=== PATIENT | female | born 1955 | race Caucasian/White ===

== ENCOUNTER 2018-06-13 04:09 | Emergency (ER) | payer OTHER ==
[~2018-06-13] VITALS: Ht 160 cm; Wt 65.8 kg
[~2018-06-13 04:09] MED LIST: ACID REDUCER20 M1 PO; ASPIR 8181 MG PO; FLEXERIL PO; FLONASE 0.05%50 MCG NASAL; IBUPROFEN 800800 M1 PO; NAPROSYN500 MG PO; NITROGLYCERIN0.4 MG SUBLING; TRAMADOL 50 MG50 MG PO; WELLBUTRIN SR100 MG PO; ZOLOFT50 MG PO
[2018-06-13 04:56] LABS: ABSOLUTE NEUTROPHILS 2.2 thou/uL (1.4-8.2); BASOPHILS 1.7 % (0.0-2.0); EOSINOPHILS 2.9 % (0.0-3.0); HEMATOCRIT 43.3 % (37.0-47.0); HEMOGLOBIN 15.4 gm/dL (12.0-15.0); LYMPHOCYTES 30.6 % (24.0-44.0); MCH 30.7 pg (26.0-34.0); MCHC 35.4 g/dL (28.0-37.0); MCV 86.5 fL (80.0-100.0); MONOCYTES 10.5 % (1.0-8.0); PLATELET COUNT 85 thou/uL (150-400); POLYS 54.3 % (36.0-66.0); RBC 5.01 mil/uL (4.20-5.00); RDW 14.1 % (10.5-14.5); WBC 4.1 thou/uL (4.0-11.0)
[2018-06-13 05:03] LABS: CALCIUM 8.9 mg/dL (8.5-10.1); CREATININE 0.9 mg/dL (0.6-1.0); MAGNESIUM 1.9 mg/dL (1.8-2.4); POTASSIUM 3.6 mmol/L (3.5-5.1)
[2018-06-13] MEDS ORDERED: NORFLEX100 MG PO (06:23)
[2018-06-13] MEDS ORDERED: TRAMADOL 50 MG50 MG PO (06:23)
[2018-06-13] MEDS ORDERED: IBUPROFEN 600600 M1 PO (06:23)
[2018-06-13 06:35] VITALS: BP 157/86
--- NOTE | 2018-06-13 08:42 | EKG ---
[place] [address] [address] [facility] [place] [address] ELECTROCARDIOGRAM REPORT Name: COLLEEN CARRILLO Room #: DEP NINA Bueno#: [id number] ������������������ Admission: 06/13/18 ������������������ Attend Phys: Discharge: 06/13/18 ������������������ Date of : 51 Report #: [id number] ����������������������������������������������������������������� [id number] THIS REPORT FOR: //name// [facility] ED Test Date: 2018-06-13 Test Time: 04:58:58 Pat Name: COLLEEN CARRILLO Department: Room: Gender: F Clinical Outcomes Manager: DG : 1955 Requested By: William Richards Order Number: [id number] MD: Rogelio Garza Measurements Intervals [place] Rate: 71 P: 68 MA: 135 QRS: 31 QRSD: 90 T: 53 QT: 410 QTc: 446 Interpretive Statements Sinus rhythm Normal tracing No previous ECG available for comparison Electronically Signed On 06-13-2018 8:41:53 CDT by Rogelio Garza [email or web address] ��������������������������������������������� <ELECTRONICALLY SIGNED> ���������������������������������������� By: Rogelio Garza MD, [facility] ��������������������������������������������� 06/13/18 [id number] Rogelio Garza MD, FACC /EPI
== END 2018-06-13 06:35 | disposition home or self-care (01) ==
LOC: ER 04:09
PROVIDERS: Emergency Medicine
DX: R07.89 Other chest pain (principal); F17.210 Nicotine dependence, cigarettes, uncomplicated; Z86.73 Personal history of transient ischemic attack (TIA), and cerebral infarction without residual deficits; Z90.710 Acquired absence of both cervix and uterus; Z90.49 Acquired absence of other specified parts of digestive tract

== ENCOUNTER 2020-12-06 15:04 | Emergency (ER) | payer MEDICARE, OTHER ==
[~2020-12-06] VITALS: Ht 160 cm; Wt 52.2 kg
[~2020-12-06 15:04] MED LIST changes: +IBUPROFEN 600600 M1 PO; +NORFLEX100 MG PO
[2020-12-06] MEDS ORDERED: NORCO5 PO (19:11)
[2020-12-07 07:24] VITALS: BP 5/76
== END 2020-12-06 19:30 | disposition home or self-care (01) ==
LOC: ER 15:04
DX: S90.31XA Contusion of right foot, initial encounter (principal); F17.210 Nicotine dependence, cigarettes, uncomplicated; Z86.73 Personal history of transient ischemic attack (TIA), and cerebral infarction without residual deficits; Z90.710 Acquired absence of both cervix and uterus; Z98.890 Other specified postprocedural states; W04.XXXA Fall while being carried or supported by other persons, initial encounter; Y93.89 Activity, other specified; Y92.89 Other specified places as the place of occurrence of the external cause; Y99.8 Other external cause status